=== PATIENT | female | born 1965 | race Two or more races ===

== ENCOUNTER → 2024-11-07 | Outpatient (CLI) | payer MEDICAID, SELFPAY ==
--- NOTE | 2024-11-07 14:45 | XR_ITS ---
Examination: Breast ultrasound complete, bilateral Date and time of exam: November 07, 2024 1424 hours INDICATIONS: Status post right breast lumpectomy 30 years ago Technique: Real-time grayscale ultrasonographic imaging bilateral breasts, including all 4 quadrants as well as nipple retroareolar and axillary regions. Findings: Sonographic images right breast Multiple benign cysts 1:00 nodule 6 x 4 x 7 mm lobular margins Sonographic images left breast 2:00 cyst 6 x 7 mm 6:00 nodule lobular margins 7 x 8 mm IMPRESSION: BI-RADS Category 3: Probably benign findings One additional 6 month bilateral breast sonography follow-up recommended to document stability of solid nodules described above
--- NOTE | 2024-11-07 15:45 | XR_ITS ---
Examination: Diagnostic digital mammography, bilateral Computer aided detection 3-D breast Tomosynthesis, bilateral Date and time of exam: November 07, 2024 1447 hours INDICATIONS: Bilateral breast lumps noticed this month Technique: Nonmagnified MLO, CC views of the breasts to been obtained, reconstructed from 3-D Tomosynthesis images. R2 computer aided detection program utilized for evaluation of suspicious masses and/or abnormal calcifications. 3-D Tomosynthesis images obtained. Findings: The breasts are heterogeneously dense, which may obscure small masses 12 mm nodule upper outer left breast anterior depth No definite suspicious mass of the palpable marker site right breast on the spot compression views Bilateral breast sonography today demonstrates 1:00 nodule right breast 7 mm, 6:00 nodule left breast 8 mm Impression: BI-RADS Category 0: Incomplete: Need additional imaging evaluation Recommend follow-up spot tomographic views 12 mm nodule upper outer left breast Please see the bilateral breast sonography report today recommending 6 month bilateral breast sonography follow-up
== END | disposition home or self-care (01) ==
LOC: CDIM 13:57
PROVIDERS: PCP Nurse Practitioner Family; Referring Provider Internal Medicine; Visit Provider Internal Medicine
DX: R92.8 Other abnormal and inconclusive findings on diagnostic imaging of breast (principal); N63.21 Unspecified lump in the left breast, upper outer quadrant; N63.25 Unspecified lump in the left breast, overlapping quadrants; N63.12 Unspecified lump in the right breast, upper inner quadrant
CPT/HCPCS: 76641; 77062; 77066; G0279

== ENCOUNTER → 2025-01-26 | Outpatient (CLI) | payer MEDICAID, SELFPAY ==
--- NOTE | 2025-01-26 11:30 | XR_ITS ---
Examination: Diagnostic digital mammography, unilateral, left Computer aided detection 3-D breast Tomosynthesis, unilateral Date and time of exam: January 26, 2025 1113 hours INDICATIONS: Mammogram November 07, 2024 7 mm nodule 1:00 position left breast 8mm nodule 6:00 position left breast Technique: Nonmagnified MLO, CC views of the left breast have been obtained, reconstructed from 3-D Tomosynthesis images. R2 computer aided detection program utilized for evaluation of suspicious masses and/or abnormal calcifications. 3-D Tomosynthesis images obtained. Findings: The breast is heterogeneously dense, which may obscure small masses No definite suspicious mass is noted on the spot compression views Impression: BI-RADS category 0: Incomplete: Need additional imaging evaluation Recommend repeat left breast sonography to compare with the November 07, 2024 exam
== END | disposition home or self-care (01) ==
PROVIDERS: PCP Nurse Practitioner Family; Referring Provider Nurse Practitioner Family; Visit Provider Nurse Practitioner Family
DX: R92.8 Other abnormal and inconclusive findings on diagnostic imaging of breast (principal)
CPT/HCPCS: 77061; 77065; G0279

== ENCOUNTER → 2025-03-03 | Outpatient (CLI) | payer MEDICAID, SELFPAY ==
--- NOTE | 2025-03-03 12:30 | XR_ITS ---
Examination: Breast ultrasound, unilateral, left complete Date and time of exam: March 03, 2025, 1253 hours INDICATIONS: Left breast sonography November 07, 2024 6:00 nodule 8 mm Technique: Real-time mora scale ultrasonographic imaging performed left breast including all 4 quadrants as well as nipple retroareolar and axillary region. Findings: 3:00 cyst 6.6 mm 7:00 nodule 8 x 7 mm circumscribed IMPRESSION: BI-RADS Category 2: Benign findings
== END | disposition home or self-care (01) ==
LOC: CDIM 12:36
PROVIDERS: PCP Nurse Practitioner Family; Referring Provider Nurse Practitioner Family; Visit Provider Nurse Practitioner Family
DX: R92.8 Other abnormal and inconclusive findings on diagnostic imaging of breast (principal)
CPT/HCPCS: 76641